=== PATIENT | male | born 1965 | race African-American/Black ===

== ENCOUNTER 2020-01-10 03:46 | Emergency (ER) | payer OTHER ==
[~2020-01-10] VITALS: Ht 182.9 cm; Wt 117.9 kg
[2020-01-10 03:48] VITALS: Ht 182.9 cm; Wt 117.9 kg
[2020-01-10 04:00] VITALS: BP 149/91
== END 2020-01-10 04:00 | disposition other institution (70) ==
LOC: ED 03:46
DX: I16.0 Hypertensive urgency (principal); Z02.79 Encounter for issue of other medical certificate

== ENCOUNTER 2020-01-10 03:46 | Emergency (ER) | payer OTHER | END 2020-01-10 04:00 | disposition other institution (70) | LOC: ED 03:46 | DX: Z02.89 Encounter for other administrative examinations (principal) ==